=== PATIENT | male | born 1945 | race African-American/Black ===

== ENCOUNTER 2022-09-09 19:31 | Emergency (ER) | payer OTHER ==
[~2022-09-09] VITALS: Ht 172.7 cm; Wt 100.2 kg
[2022-09-09] MEDS ORDERED: ROSUVASTATIN CAL5 MG PO (20:28)
[2022-09-09] MEDS ORDERED: DORZOLAMIDE-TIM10 ML OP (20:28)
[2022-09-09] MEDS ORDERED: LOSARTAN-HCTZ1 EAC2 PO (20:28)
[2022-09-09] MEDS ORDERED: TRULICITY0.75 MG/0. SQ (20:28)
[2022-09-09] MEDS ORDERED: TRAVOPROST2.5 ML OP (20:29)
[2022-09-09] MEDS ORDERED: ALPHAGAN P5 M2 OP (20:29)
[2022-09-10] MEDS ORDERED: LEVSIN/SL0.125 MG SL (05:06)
[2022-09-10] MEDS ORDERED: CIPRO500 MG PO (05:06)
[2022-09-10] MEDS ORDERED: INTESTINEX680 M1 PO (05:06)
== END 2022-09-10 09:37 ==
LOC: ER 19:31
DX: K52.9 Noninfective gastroenteritis and colitis, unspecified (principal); Z88.0 Allergy status to penicillin; E11.9 Type 2 diabetes mellitus without complications; I10 Essential (primary) hypertension